=== PATIENT | male | born 1970 | race Caucasian/White ===

== ENCOUNTER 2016-12-16 00:54 | Emergency (ER) | payer OTHER ==
[~2016-12-16] VITALS: Ht 177.8 cm; Wt 100.0 kg
--- NOTE | 2016-12-16 00:59 | ED.REPORT ---
HPI-Head Prob / Injury Date of Service Dec 16, 2016 ED Provider: Cecil Mccullough DO A 46 year old male with a history of alcohol abuse, vertebral crush injury, and spinal fusion is brought to the ED via EMS due to a fall. The pt tripped over a [employer] tonight and fell with his face landing directly onto a car, leaving a dent in the metal. Paramedics found him on the ground by the car. The pt remembers the fall and hitting the vehicle, but is unsure if he lost consciousness. He is now complaining of right wrist pain, arm weakness, left arm tingling, and foot numbness and is unable to squeeze per medics. He does have full movement of his legs and feet and denies cervical spine tenderness. The pt drank seven or eight beers tonight. Nursing Notes Stated Complaint: STANDBY TRAUMA FALL Nursing Notes Reviewed: Yes Allergies: Coded Allergies: No Known Allergies (Verified Allergy, Unknown, 12/16/16) No Active Prescriptions or Reported Meds General Time Seen by Provider: 00:59 Chief Complaint Other (Fall) Hx Obtained From: Patient, EMS Arrived By: Ambulance Onset Occurred: 31 - 45 minutes ago Symptom Duration: Since onset Recent Healthcare: No recent doctor visit, No recent hospitalization Similar Sx Previous: No Risk-Head Prob / Injury Head CT Imaging Inclusion Criteria: >/= 16 yo age Patient Presents WITHOUT: PostTraumatic Amnesia Consider Non Contrast CT for: No >/= 60 yo Age, No Fall Down Steps >/= 5, No Vomiting RF Statements: Risk factors reviewed Past Medical History Past Medical History hypertension (noncompliant with meds) heartburn vertebral crush injury depression alcohol abuse Past Surgical History Hernia operation Neck fusion 2007 Smoking History Never Smoker Social History Alcohol Use: >5 per day Drug Use: Denies drug use Other Social History: Smokeless tobacco Ambulatory Status Independent Review of Systems Unable to Obtain ROS Intoxicated Physical Exam Initial Vital Signs Vital Signs (First) Date Time Temp Pulse Resp B/P Pulse Ox O2 Delivery O2 Flow Rate FiO2 12/16/16 03:05 82 18 115/89 100 Room Air BP: 128/86 HR: 73 Temp: 35.8 Pulse Ox: 100% on room air Initial VS: Reviewed General/Constitutional: Awake, Alert intoxicated Head / Eyes: Normocephalic, PERRL, EOMI blood on face multiple abrasions on face ENT: Atraumatic, Airway patent, Mucous membranes moist Neck: Atraumatic, Supple, Full range of motion Neurologic: Speech NL, No sensory deficits bilateral wrist drop biceps strength greater than triceps on right initially complaining numbness in toes and burning paresthesia in left arm weak extension in right biceps Respiratory / Chest: Atraumatic, Breath sounds NL, Breath sounds = bilat, No respiratory distress Cardiovascular: Heart rate NL, Regular rhythm, Heart sounds NL Upper Extremity / MS: Atraumatic, Full range of motion Lower Extremity / Pelvis / MS: Atraumatic, Full range of motion Skin: Color NL, No rash, Warm, Dry Psychiatric: Affect NL, Mood NL Abdomen: Atraumatic, Soft, Non-tender Back: Atraumatic, Full range of motion Interpretation & Diagnostics Interpretation & Diagnostics: CT Maxillofacial: IMPRESSION: Nondisplaced bilateral nasal bone fractures. Lab Results Interpretation Result Diagram: 12/16/16 0100 12/16/16 0100 Test 12/16/16 01:00 12/16/16 03:20 White Blood Count 12.4th/mm3 (3.8-10.1) Red Blood Count 4.75mil/mm3 (4.40-5.80) Hemoglobin 15.1g/dL (13.8-17.2) Hematocrit 43.3% (41.0-50.0) Mean Corpuscular Volume 91.2fL (81-100) Mean Corpuscular Hemoglobin 31.8pg (27.0-35.0) Mean Corpuscular Hemoglobin Concent 34.9% (32.0-37.0) Red Cell Distribution Width 12.6% (12.3-15.4) Platelet Count 287bil/L (150-400) Neutrophils (%) (Auto) 55.3% (40-74) Lymphocytes (%) (Auto) 31.3% (14-46) Monocytes (%) (Auto) 8.8% (4-12) Eosinophils (%) (Auto) 3.5% (0-5) Basophils (%) (Auto) 0.9% (0-3) Prothrombin Time 10.7sec (8.1-12.5) Prothromb Time International Ratio 1.00ratio Activated Partial Thromboplast Time 27.7sec (22.8-33.0) Sodium Level 137mEq/L (134-144) Potassium Level 3.7mEq/L (3.5-5.2) Chloride Level 98mEq/L (97-108) Carbon Dioxide Level 21mmol/L (18-29) Blood Urea Nitrogen 14mg/dL (6-24) Creatinine 0.85mg/dL (0.76-1.27) Estimat Glomerular Filtration Rate 103mL/min (>59) Glucose Level 103mg/dL (60-99) Calcium Level 9.1mg/dL (8.5-10.1) Total Bilirubin 0.4mg/dL (0.0-1.2) Aspartate Amino Transf (AST/SGOT) 27U/L (0-50) Alanine Aminotransferase (ALT/SGPT) 30U/L (0-44) Alkaline Phosphatase 68U/L (25-150) Total Protein 7.6g/dL (6.4-8.4) Albumin 4.2g/dL (3.4-5.0) Alcohols 229mg/dL (0-10) Urine Color Straw (YELLOW) Urine Appearance Clear (CLEAR,HAZY) Urine pH 6.0 (5.0-8.0) Urine Specific Spencer 1.005 (1.003-1.035) Urine Protein Negativemg/dL (NEG,TRACE) Urine Glucose (UA) Negativemg/dL (NEGATIVE) Urine Ketones Negativemg/dL (NEGATIVE) Urine Occult Blood Negative (NEGATIVE) Urine Nitrite Negative (NEGATIVE) Urine Bilirubin Negative (NEGATIVE) Urine Urobilinogen Normalmg/dL (NORMAL) Urine Leukocyte Esterase Negative (NEGATIVE) Urine RBC 0-2/hpf (0-2) Urine WBC 0-5/hpf (0-5) Urine Epithelial Cells Occasional/hpf (NONE-MOD) Urine Crystals None seen (NONE SEEN) Urine Bacteria None/hpf (NONE-FEW) Urine Hyaline Casts None/lpf (NONE) Urine Granular Casts None seen (NONE SEEN) Urine Waxy Casts None seen (NONE SEEN) Urine Red Blood Cell Casts None seen (NONE SEEN) Urine White Blood Cell Casts None seen (NONE SEEN) Urine Mucus None seen (None Seen) Urine Trichomonas None seen (NONE SEEN) Urine Yeast None (NONE SEEN) Urine Culture Reflexed Not indicated Pulse Oximetry Interpretation Pulse Oximetry Interpretation: 100% on room air Pulse Oximetry: Pulse Ox normal ECG Interpretation ECG Interpretation: normal sinus rhythm with a rate of 72 nonspecific intraventricular conduction delay Time: :27 Interpreted by: ED physician CT Head Interpretation IMPRESSION: No CT evidence of hemorrhage, mass, or acute infarct. Interpretation / Wet Read by: Interpret - Radiologist CT C-Spine Interpretation CONCLUSION: No CT evidence of fracture or dislocation. Interpretation / Wet Read by: Interpret - Radiologist Re-Eval/Medical Decision Med Decision/Clinical Course Assumed care at [address] Mccullough. Patient has a central cord syndrome and a negative CT. Case presented to Dr. Prince of [facility] and patient accepted for transfer. Given fentanyl for the trip at the time of departure via [employer]. Transported now in critical stable condition 46-year-old male took a face plant when he tripped and fell. He fell forward striking his face on an automobile. He ended up on the ground. He felt burning searing pain going down his neck and into his shoulder blades. Both of his wrists felt weak with extension in his feet felt numb. EMS brought him in as a standby trauma. Uncertain if he lost consciousness. He does admit to drinking 6-10 beers tonight. Primary survey showed a patent airway. Breath sounds were equal bilateral. Good respiratory effort. Cardiac was crisp without murmur or JVD. Abdomen was soft nontender. Pelvis was stable. No signs of traumatic injury to the limbs. Secondary survey: [place] Coma Scale 15. Patient is awake alert and conversant. He has normal facial sensation normal facial motor. He can shrug his shoulders. He has almost no ability to extend at the wrist bilaterally. He has weak biceps strength bilaterally I am not convinced his triceps are full capacity consistently certainly do not feel strong to me. He has decreased 2 point discrimination and sensation in his hands. He does have paresthesias in both hands. He has no priapism. No saddle anesthesia. He has strong dorsiflexion and plantar flexion at the feet. Decreased sensation on the dorsal aspects of his feet. Patient was log rolled with in line immobilization. No thoracic or lumbar spine tenderness or deformity. CT brain: No acute injury. CT face: Bilateral nasal bone fractures. CT cervical spine shows anterior fusion at C5 to C7. Normal alignment of the vertebral bodies. No fractures of the vertebral bodies or posterior elements. Spinal canals normal in caliber. ED course: IV access was obtained and labs were checked. Labs were reassuring. He is intoxicated. Alcohol is 229. Mild leukocytosis P no evidence of anemia. He has been hemodynamically stable. No evidence of hypotension whatsoever. Serial abdominal examinations were normal without any abdominal tenderness whatsoever. Assessment: Blunt head injury with neck injury and central cord syndrome. #2 SCIWORA Plan: We have reached out to [facility]. I spoke with the psych coordinator. She is paged Dr. Prince who was adoption specialist on- call. We will discuss transferring Mr. Pérez to [facility] with the spine team. They have yet to call us back. We will discuss IV steroids with the spine team as well. Kathleen Dors Dr. Alfredo Choe at 0336. My shift is concluded. I explained this all to Mr. Pérez. Luckily he is starting to get some strength back in his hands . Source of Hx: Old records Re-Evaluation/Progress : Time of Eval: 04:50 Patient Status: Condition improved Re-Evaluation/Progress Note: Dr. Choe rechecked patient. Discussed with patient CT and lab results, diagnosis, and plan for transfer to [facility]. Patient agrees with plan for care and all questions were addressed. Consultation #1: Call Returned at: 03:00 Note: Spoke with [facility]. Dr. Ventura Prince, neurosurgery, will be paged for consult. Consultation #2: Consulted With: Neurosurgery Call Returned at: 04:06 Meat Loiner: Agrees with eval, Agrees with plan Note: Dr. Choe consulted Dr. Ventura Prince, [facility]: Discussed patient's case. Agrees with plan for transfer. Counseled Regarding: Diagnosis, Lab results, Need for transfer Discharge & Departure Shift Change Sign-Out Patient Care Transferred: Yes (Dr. Choe) Discussed Complaint(s): Yes Laboratory Evaluation: Lab evaluation discussed Imaging Studies: Imaging discussed Input from Consult: Dr. Prince [place] Response to Therapy: Improved Primary Impression: Central cord syndrome Encounter type: initial encounter Qualified Code: S14.129A - Central cord syndrome at unspecified level of cervical spinal cord, initial encounter Additional Impressions: SCIWORA (spinal cord injury without radiographic abnormality) Blunt head trauma Encounter type: initial encounter Qualified Code: S09.8XXA - Other specified injuries of head, initial encounter Nasal bone fractures Encounter type: initial encounter Fracture type: closed Qualified Code: S02.2XXA - Fracture of nasal bones, initial encounter for closed fracture Disposition: Transfer, Acute Care Facility Receiving Hospital: [facility] Transfer Accepted: Yes Transfer Accepted at: 04:06 Transfer Reason: Higher level of care Spoke with: Specialty physician Patient Status: Stable Patient Informed: Yes All VS Reviewed: Yes Condition: Stable Referrals: Rito Betancourt MD (PCP) Crit Care Except Billable Proc Time Spent: 30-74 minutes Services Performed: Patient management by me, Time spent at bedside, Reviewing test results, Reviewing imaging, Discussing patient care, Documentation in record Scribe Attestation Portions of this note were transcribed by Darius Brock. Dr. Jamel Barnard personally performed the history, physical exam and medical decision-making; I reviewed and confirmed the accuracy of the information in the transcribed note. Signed by: Fern Condon, 12/16/16 and 0342. Portions of this note were transcribed by Joleen Garcia. I, Dr. Choe, personally performed the history, physical exam, and medical decision-making; I reviewed and confirmed the accuracy of the information in the transcribed note. Signed by: Fern Morgan, 12/16/2016, 05:45 copies to: Rito Betancourt MD, Todd P DO Dec 16, 2016 00:59 DARIUS BROCK Dec 16, 2016 01:12 JOLEEN GARCIA Dec 16, 2016 04:20 Alfredo Choe MD Dec 16, 2016 05:45
[2016-12-16 01:12] LABS: BASOPHILS % (AUTO) 0.9 % (0-3); EOSINOPHILS % (AUTO) 3.5 % (0-5); MONOCYTES % (AUTO) 8.8 % (4-12); Mean Corpuscular Hemoglobin 31.8 pg (27.0-35.0); Mean Corpuscular Volume 91.2 fL (81-100); NEUTROPHILS % (AUTO) 55.3 % (40-74); Platelet Count 287 bil/L (150-400)
[2016-12-16 03:05] VITALS: BP 115/89; PULSE 82; RESP 18; O2SAT 100
[2016-12-16 03:36] LABS: APPEARANCE,URINE CLEAR (CLEAR,HAZY); COLOR,URINE STRAW (YELLOW); OCCULT BLOOD,URINE NEGATIVE (NEGATIVE); UROBILINOGEN,URINE NORMAL (NORMAL)
[2016-12-16] MEDS ORDERED: fentaNYL-PF 50 mCg/mL 2 mL Inj IVPUSH ONE (04:50)
--- NOTE | 2016-12-16 09:00 | DRSVH ---
PROCEDURE: CT BRAIN WITHOUT CONTRAST ([id number]) INDICATIONS: FALL NECK AND FACIAL PAIN TECHNIQUE: Noncontrast 4.5 mm thick angled axial sections acquired from the foramen magnum to the vertex, with c oronal reformats. COMPARISON: [facility], CT, CT FACE WO CON, 12/16/2016, 1:12. FINDINGS: Image quality: Excellent. CSF spaces: Basal cisterns are patent. No extra-axial fluid collections. Ventricles are normal in size and shape. Brain: No intracranial hemorrhage, mass, or mass effect. Alba-white matter interface is preserved. Skull and face: The calvarium appears intact. The visualized facial bones demonstrate mild irregular ity of the nasal bone suggestive of relatively nondisplaced fractures. Sinuses: Visualized sinuses and mastoids are clear. IMPRESSION: 1. No acute intracranial abnormality. 2. Relatively nondisplaced fractures of the nasal bones. Recommend correlation with concurrent CT o f the facial bones. Dictated by: Raz Kim M.D. on 12/16/2016 at 8:56 Approved by: Raz Kim M.D. on 12/16/2016 at 8:58
--- NOTE | 2016-12-16 09:06 | DRSVH ---
PROCEDURE: CT CERVICAL SPINE WITHOUT CONTRAST ([id number]) INDICATIONS: FALL NECK AND FACIAL PAIN TECHNIQUE: Noncontrast 3 mm thick sections acquired from the skull base to the T4 level. Sagittal and coronal r eformats were then constructed. For radiation dose reduction, the following was used: automated exp osure control, adjustment of mA and/or kV according to patient size. COMPARISON: [facility], MR, CERVICAL SPINE W/O CONTRAST, 09/05/2011, 19:34. FINDINGS: Image quality: There is mild streak artifact from patient's surgical hardware. Bones: No fractures or dislocations. There is straightening of the cervical lordosis redemonstrated . Minimal anterolisthesis is present at C7 on T1 which appears new from the prior study. Postsurgica l changes are present status post anterior fixation and fusion at C5-C7. There is mild multilevel di sc space narrowing in the visualized cervical and thoracic spine. There is also multilevel facet art hropathy most prominent at C7-T1 where there are associated cystic changes on the left. Visualized s uperior ribs are intact. Soft tissues: Prevertebral soft tissues are normal in thickness. No paravertebral hematomas. No ap ical pneumothoraces. IMPRESSION: 1. No fracture or subluxation. 2. Postsurgical changes redemonstrated at C5-C7 status post ACDF. 3. Minimal anterolisthesis at C7-T1 appears new from the prior study. Recommend attention on follow up. 4. Multilevel degenerative changes including prominent facet arthropathy at C7-T1 with associated cy stic changes on the left. Dictated by: Raz Kim M.D. on 12/16/2016 at 8:58 Approved by: Raz Kim M.D. on 12/16/2016 at 9:05
--- NOTE | 2016-12-16 09:21 | DRSVH ---
PROCEDURE: CT FACE WITHOUT CONTRAST ([id number]) INDICATIONS: FALL NECK AND FACIAL PAIN TECHNIQUE: Noncontrast 1.5 mm thick axial images acquired from the mandible through the frontal sinuses, with co solitario and sagittal reformatting. For radiation dose reduction, the following was used: automated ex posure control. COMPARISON: None. FINDINGS: Image quality: There is streak artifact associated with patient's dental hardware. Bones and teeth: There are linear lucencies through the nasal bones anteriorly with associated overly ing soft tissue swelling compatible with relatively nondisplaced fractures. Orbital mendez are intact . Sinus mendez show no fracture or deformity. Visualized portions of the mandible demonstrate no fra ctures or subluxation. Zygomatic arches are intact. Pterygoid plates are intact. Visualized portio ns of the skull base and auditory canals are intact. Sinuses: There is mild mucosal thickening within the frontal, ethmoid, and maxillary sinuses without air-fluid levels. Mastoid air cells are aerated. Soft tissues: There is mild soft tissue swelling overlying the nasal bones and in the right periorbit al region. No discrete soft tissue foreign bodies. Vascular: Visualized vascular structures appear normal in the absence of contrast. Bony vascular fo ramina and canals are intact. IMPRESSION: 1. Nondisplaced nasal bone fractures with associated overlying soft tissue swelling. Dictated by: Raz Kim M.D. on 12/16/2016 at 9:05 Approved by: Raz Kim M.D. on 12/16/2016 at 9:20
== END 2016-12-16 05:05 | disposition short-term general hospital (02) ==
LOC: SED 00:54
DX: S09.8XXA Other specified injuries of head, initial encounter (principal); S02.2XXA Fracture of nasal bones, initial encounter for closed fracture; W01.198A Fall on same level from slipping, tripping and stumbling with subsequent striking against other object, initial encounter; Y93.9 Activity, unspecified; Y99.9 Unspecified external cause status; Y92.9 Unspecified place or not applicable; I10 Essential (primary) hypertension
CPT/HCPCS: 36415; 70450; 70486; 72125; 80053; 81000; 81002; 85025; 85610; 85730; 93005; 96374; 99291; G0480; J3010